=== PATIENT | female | born 1995 | race American Indian/Alaskan Native ===

== ENCOUNTER 2018-10-02 18:16 | Emergency (ER) | payer BC ==
[2018-10-02 19:24] VITALS: BP 110/70; PULSE 84; TEMP 98; O2SAT 99
--- NOTE | 2018-10-02 20:02 | C.PDOC ---
History Of Present Illness 23 y/o female presents to the ER complaining right earache which has been present for the past 3 days. Patient states that she was evaluated for same complaint at an urgent care center 3 days ago. At the time, patient reports that she was prescribed Amoxicillin. She has been taking the medication without relief for the past 3 days. She thinks that the pain is becoming worse. She also thinks that her symptoms are starting to affect her balance. Denies having fever,chills, headache, nausea, and vomiting. Time Seen by Provider: 10/02/18 19:15 Chief Complaint (Nursing): ENT Problem History Per: Patient History/Exam Limitations: None Onset/Duration Of Symptoms: Days Current Symptoms Are (Timing): Still Present Severity: Moderate Past Medical History Reviewed: Historical Data, Nursing Documentation, Vital Signs Vital Signs: Last Vital Signs Temp 98 F 10/02/18 19:21 Pulse 84 10/02/18 19:21 Resp 14 10/02/18 19:21 BP 110/70 10/02/18 19:21 Pulse Ox 99 10/02/18 19:21 Primary Care Provider: FAMILY PROVIDER,NO - Medical History PMH: No Chronic Diseases Surgical History: No Surg Hx Family History: States: No Known Family Hx - Social History Hx Alcohol Use: Yes Hx Substance Use: No - Immunization History Hx Tetanus Toxoid Vaccination: Yes Hx Influenza Vaccination: Yes Hx Pneumococcal Vaccination: No Review Of Systems Constitutional: Negative for: Fever, Chills ENT: Positive for: Ear Pain. Negative for: Ear Discharge Respiratory: Negative for: Cough Gastrointestinal: Negative for: Nausea, Vomiting Neurological: Negative for: Headache Physical Exam - Physical Exam Appears: Non-toxic, No Acute Distress Skin: Normal Color, Warm, Dry Head: Atraumatic, Normacephalic Eye(s): bilateral: Normal Inspection Ear(s): Left: Normal, Right: Other (pain with pulling on pinna,swelling to canal, mild discharge in canal) Neurological/Psych: Oriented x3, Normal Speech ED Course And Treatment O2 Sat by Pulse Oximetry: 99 (RA) Pulse Ox Interpretation: Normal Medical Decision Making Medical Decision Making: Patient has been diagnosed with otitis externa and discharged with prescription for abx. Disposition Counseled Patient/Family Regarding: Diagnosis, Need For Followup, Rx Given - Disposition Referrals: Raghavendra Henderson MD [Staff Provider] - Disposition: HOME/ ROUTINE Disposition Time: 19:58 Condition: STABLE Prescriptions: Ibuprofen [Motrin Tab] 600 mg PO TID #21 tab Ofloxacin Otic 0.3% [Floxin 0.3% Otic Soln] 2 drop AD BID #1 bottle Instructions: Outer Ear Infection (DC) Forms: [facility] (Tristanian), General Discharge Instructions - Clinical Impression Clinical Impression: Otitis externa - PA / STEM TEACHER / Resident Statement MD/DO has reviewed & agrees with the documentation as recorded. - Scribe Statement The provider has reviewed the documentation as recorded by the Deedeeibemma Massey Provider Attestation All medical record entries made by the Live were at my direction and personally dictated by me. I have reviewed the chart and agree that the record accurately reflects my personal performance of the history, physical exam, medical decision making, and the department course for this patient. I have also personally directed, reviewed, and agree with the discharge instructions and disposition.
[2018-10-02 20:20] VITALS: RESP 20
== END 2018-10-02 20:20 | disposition home or self-care (01) ==
LOC: C.ER 18:16
DX: H60.90 Unspecified otitis externa, unspecified ear (principal)